=== PATIENT | female | born 1985 | race Caucasian/White ===

== ENCOUNTER → 2024-07-20 12:50 | Outpatient (REF) | payer OTHER, SELFPAY | LOC: HWRCS 12:50 | PROVIDERS: ATTENDING PHYSICIAN Internal Medicine Cardiovascular Disease; FAMILY PHYSICIAN Family Medicine | DX: R00.2 Palpitations (principal); I10 Essential (primary) hypertension | CPT/HCPCS: 93306 ==

== ENCOUNTER 2025-03-15 14:16 | Emergency (ER) | payer OTHER, SELFPAY ==
[2025-03-15 14:18] VITALS: BP 177/110
--- NOTE | 2025-03-15 16:30 | ED.GENMED ---
History of Present Illness
General
Chief Complaint: DVT/Possible Blood Clot
Source: patient
Exam Limitations: none
Time Seen by Provider: 03/15/25 14:48
Nursing documentation reviewed up to this point in time: agreed with
History of Present Illness
History of Present Illness:
39-year-old female with history of bipolar, on Lamictal which was recently increased from 50 to 75 mg presents for left calf and thigh pain. She states she awakened today with a rash on the anterior aspect of her lower left thigh but this has since
totally dissipated. She saw her PCP initially for the thigh and calf pain and was given a steroid for probable sciatica. This has not helped. She denies shortness of breath or chest pain. No recollection of overuse or injury. No recent travel.
Past History
Past History
ED Past Medical History: Psychiatric (Bipolar)
ED Past Surgical History:
Social History
Tobacco: Non-smoker
Alcohol: None
Personal:
Living: with family
Employment: Not employed
Review of Systems
Review of Systems
Allergies reviewed?: Yes
All Other Systems: ROS reviewed and negative except as documented in HPI and ROS
Respiratory: Denies trouble breathing
Cardiac: Denies chest pain
Musculoskeletal: Reports other (Pain in left calf and thigh)
Skin: Reports no symptoms
Phy Exam
Physical Exam
Physical Exam:
GENERAL: No acute distress. A&Ox3.
CONSTITUTIONAL: Afebrile.
EYES: clear, conjunctivae normal
ENMT: moist mucus membranes, Pharynx nl
RESPIRATORY: Regular respirations, nonlabored, lungs clear.
CARDIOVASCULAR: Regular rate and rhythm, no murmurs, no rubs.
GI: Soft, nontender, normal BS
MUSCULOSKELETAL: Moves with ease. Well perfused. No redness or swelling left lower extremity. Mild tenderness to palpation along the calf. No palpable masses. Distal neurovascular intact.
SKIN: Warm, dry, pink
PSYCH: Normal mood and affect. Well kept, interactive and appropriate
NEUROLOGIC: Awake, alert and oriented. No focal neurological deficits
Course
Orders/Labs/Results
Orders:
Orders
03/15/25 15:33
US Periph Venous LOWER Ext LT Urgent
Comment:
Reason For Exam: calf pain
Vital Signs
Initial and Last Documented VS:
Initial Vital Signs
Temp Pulse Resp BP Pulse Ox
98.2 F 116 20 177/110 96
03/15/25 14:18 03/15/25 14:18 03/15/25 14:18 03/15/25 14:18 03/15/25 14:18
Last Documented Vital Signs
Temp Pulse Resp BP Pulse Ox
98.2 F 85 20 140/90 97
03/15/25 14:18 03/15/25 17:52 03/15/25 17:52 03/15/25 17:52 03/15/25 17:52
MDM/Problems Addressed
Differential Diagnosis Includes:
DVT, musculoskeletal pain, sciatica
MDM/Problems Addressed:
39-year-old female with history of bipolar, on Lamictal which was recently increased from 50 to 75 mg presents for left calf and thigh pain. She states she awakened today with a rash on the anterior aspect of her lower left thigh but this has since
totally dissipated. She saw her PCP initially for the thigh and calf pain and was given a steroid for probable sciatica. This has not helped. She denies shortness of breath or chest pain. No recollection of overuse or injury. No recent travel.
4:30 PM:
Ultrasound negative for DVT
No sign of rash
BP improved 150/53
*Critical Care Note
Total Time (30-74mins, 75-104mins- exclusive of procedures): Not Applicable
ED Attending Note
-
Portions of this chart may have been created with voice recognition software.� Occasional wrong word or��sound alike� substitutions may have occurred due to the inherent limitations of voice recognition software.
Discharge Plan
Departure
Patient Disposition: Home (Routine Discharge)
Date of Disposition: 03/15/25
Time of Disposition: 16:34
Patient with high blood pressure during this ER visit?: No
Condition: Good
Discharge Problem:
Pain of left calf
Instructions: Musculoskeletal Pain
Referrals:
Jay Barnett DO [Family Provider, [facility]] - As needed
Activity Restrictions/Additional Instructions:
As we discussed, your ultrasound shows no clot.
Interventions
Interventions:
*Risk Screen - Suicide Last Done: 03/15/25 14:18
*General Assessment Last Done: 03/15/25 14:18
*Neglect/Abuse Screening Last Done: 03/15/25 14:18
*Nursing Disposition Last Done: 03/15/25 17:52
ED-Peripheral Vascular Assessment Last Done: 03/15/25 17:52
Discharge Date and Time
Discharge Date/Time: 03/15/25 17:55
Print Language: FILIPINO
[2025-03-15 17:52] VITALS: BP 140/90
== END 2025-03-15 17:55 | disposition home or self-care (01) ==
LOC: EMR 14:16
PROVIDERS: EMERGENCY PHYSICIAN Student in an Organized Health Care Education/Training Program; FAMILY PHYSICIAN Family Medicine
DX: M79.662 Pain in left lower leg (principal); F31.9 Bipolar disorder, unspecified; Z79.899 Other long term (current) drug therapy
CPT/HCPCS: 99284; 93971